=== PATIENT | male | born 1990 | race Caucasian/White ===

== ENCOUNTER 2016-09-20 21:11 | Observation (INO) | payer OTHER ==
[~2016-09-20] VITALS: Ht 188 cm; Wt 80.2 kg
[~2016-09-20 21:11] MED LIST: CHANTIX1 EACH PO; GABAPENTIN100 MG PO; MOTRIN800 MG PO; NUCYNTA ER150 MG PO; ONDANSETRON HCL4 MG PO; PERCOCET 5/31 TABLET PO; PROTONIX40 MG PO
[2016-09-20] MEDS ORDERED: SUBOXONE 8 MG-1 EAC2 SL (22:19)
[2016-09-20 22:35] LABS: HEMATOCRIT 44.9 % (38.0-50.0); MCHC 33.2 G/DL (30.0-36.0); MCV 90.3 FL (86-99); MEAN PLAT.VOLUME 10.5 uM^3 (9.0-12.4); PLATELET COUNT 236 K/uL (156-360); RBC DIS.WIDTH-CV 12.5 % (11.8-14.6); RBC DIS.WIDTH-SD 41.1 % (39-53); RED BLOOD COUNT 4.97 M/uL (4.00-5.50); WHITE BLOOD COUNT 5.8 K/uL (4.1-10.2)
[2016-09-20 22:45] LABS: CHLORIDE 107 mEq/L (99-109); POTASSIUM 3.6 mEq/L (3.7-5.4); SODIUM 143 mEq/L (136-147)
[2016-09-20 22:47] LABS: GLUCOSE 100 mg/dL (70-99)
[2016-09-20 22:48] LABS: ANION GAP 11 MEQ/L (2-14)
[2016-09-20 22:51] LABS: GFR ESTIMATE (CALCULATED) > 59 mL/min/
[2016-09-20 22:52] LABS: UREA NITROGEN (BUN) 7 mg/dL (9-23)
[2016-09-20 22:57] LABS: TROP-I INTERPRETATION NEGATIVE; TROPONIN-I < 0.01 ng/mL (0.0-0.30)
[2016-09-21 00:10] LABS: TROP-I INTERPRETATION NEGATIVE; TROPONIN-I < 0.01 ng/mL (0.0-0.30)
[2016-09-21 06:25] LABS: TROP-I INTERPRETATION NEGATIVE; TROPONIN-I < 0.01 ng/mL (0.0-0.30)
[2016-09-21 06:54] VITALS: BP 123/79
[2016-09-21 07:04] LABS: Estimated Average Glucose 108 mg/dL (70-123); HEMOGLOBIN A1c (GLYCOHEMOGLOB) 5.4 % HGB (Below 5.7)
[2016-09-21 07:16] LABS: HDL CHOLESTEROL 38 MG/DL (Desirable>=40); LDL CHOLESTEROL 87 mg/dL (Desirable<100); NON-HDL CHOLESTEROL 122 mg/dL (Desirable<160); TOTAL CHOLESTEROL 160 mg/dL (Desirable<200); TRIGLYCERIDES 176 MG/DL (Normal: <150)
[2016-09-21 12:11] VITALS: BP 143/81
[2016-09-21 13:37] LABS: TROP-I INTERPRETATION NEGATIVE; TROPONIN-I < 0.01 ng/mL (0.0-0.30)
[2016-09-21 13:54] LABS: AMPHETAMINES QUANT VALUE 0 NG/ML; BARBITUATES QUANT VALUE 0 NG/ML; BENZODIAZEPINES QUANT VALUE 0 NG/ML; BENZODIAZEPINES, URINE SCREEN Negative (200 ng/mL); OPIATES QUANTITATIVE VALUE 0 NG/ML; PHENCYCLIDINE QUANT VALUE 0 NG/ML
[2016-09-21] MEDS ORDERED: AZITHROMYCIN500 M1 PO (14:11)
== END 2016-09-21 15:42 | disposition home or self-care (01) ==
LOC: EME 21:11 → RME 21:11 → EDOF 09-21 04:56 → 5WEST 09-21 06:29
PROVIDERS: Internal Medicine; Physician Assistant
DX: R07.9 Chest pain, unspecified (principal); R55 Syncope and collapse; J20.9 Acute bronchitis, unspecified; R20.2 Paresthesia of skin; F11.20 Opioid dependence, uncomplicated; F17.210 Nicotine dependence, cigarettes, uncomplicated
CPT/HCPCS: 70450; 71020; 71275; 80048; 80061; 80306 90; 83036; 84484; 85027; 93005; 99281; 99285; G0378; J1885; J7030